=== PATIENT | male | born 1945 | race Caucasian/White ===

== ENCOUNTER 2018-07-26 17:04 | Emergency (ER) | payer OTHER ==
[~2018-07-26] VITALS: Ht 167.6 cm; Wt 65.8 kg
--- NOTE | ~2018-07-26 | EKG ---
[address] [address] ELECTROCARDIOGRAM REPORT Name: LINDSEY PLATT [id number] Admission: 07/26/18 Attend Phys: Discharge: 07/26/18 Date of : 43 Report #: [id number] THIS REPORT FOR: //name// [facility] ED Test Date: 2018-07-26 Test Time: 17:07:08 Pat Name: LINDSEY PLATT Department: Room: Gender: Clinical Data Specialist: ZAG : [id number] Requested By: Jose Pendleton Order Number: [id number] MD: Xiang Aquino Measurements Intervals [place] Rate: 90 P: 50 ME: 178 QRS: 15 QRSD: 98 T: 60 QT: 361 QTc: 442 Interpretive Statements Sinus rhythm Probable left ventricular hypertrophy Compared to ECG 05/16/2015 10:42:30 No significant changes Electronically Signed On 07-27-2018 8:19:31 CDT by Xiang Aquino [email or web address] <ELECTRONICALLY SIGNED> By: Xiang Aquino MD 07/27/18 0819 1707 06 Xiang Aquino MD /CESAR
[~2018-07-26 17:04] MED LIST: ADVAIR 250-501 EACH INH; ASPIR 8181 MG PO; ASPIRIN325 PO; BENADRYL25 MG PO; CIPROFLOXACIN500 M1 PO; FLAGYL500 MG PO; IBUPROFEN 200200 M1 PO; IBUPROFEN200 M2 PO; LIVALO1 MG PO; LIVALO2 MG PO; MUCINEX TA600 MG/TA1 PO; NORCO 5-325 TA1 EACH PO; NORFLEX100 MG PO; PROAIR HFA8.5 GM; SYMBICORT80 MCG/4.1 INH; TRILIPIX135 MG PO; TYLENOL325 MG PO
[2018-07-26 18:00] LABS: ABSOLUTE NEUTROPHILS 5.9 thou/uL (1.4-8.2); BASOPHILS 0.6 % (0.0-2.0); EOSINOPHILS 0.2 % (0.0-3.0); HEMATOCRIT 41.6 % (42.0-52.0); HEMOGLOBIN 14.3 gm/dL (14.0-18.0); LYMPHOCYTES 12.3 % (24.0-44.0); MCH 29.8 pg (26.0-34.0); MCHC 34.3 g/dL (28.0-37.0); MCV 86.9 fL (80.0-100.0); MONOCYTES 5.1 % (1.0-8.0); PLATELET COUNT 293 thou/uL (150-400); POLYS 81.8 % (36.0-66.0); RBC 4.79 mil/uL (4.50-6.00); RDW 14.1 % (10.5-14.5); WBC 7.2 thou/uL (4.0-11.0)
[2018-07-26 18:03] LABS: ANION GAP 4 mmol/L (7-16); BUN 16 mg/dL (7-18); CALCIUM 9.5 mg/dL (8.5-10.1); CHLORIDE 102 mmol/L (98-107); CO2 30 mmol/L (21-32); CREATININE 0.9 mg/dL (0.7-1.3); GLUCOSE 219 mg/dL (74-106); SODIUM 136 mmol/L (136-145)
[2018-07-26 18:12] LABS: TROPONIN-I <0.06 ng/mL (<0.06)
[2018-07-26] MEDS ORDERED: ROBAXIN 750 MG750 M1 PO (19:35)
[2018-07-26 20:45] VITALS: BP 154/82
== END 2018-07-26 20:47 | disposition home or self-care (01) ==
LOC: ER 17:04
PROVIDERS: Emergency Medicine
DX: R07.89 Other chest pain (principal); J45.909 Unspecified asthma, uncomplicated; K21.9 Gastro-esophageal reflux disease without esophagitis; E78.00 Pure hypercholesterolemia, unspecified

== ENCOUNTER 2019-01-06 10:18 | Emergency (ER) | payer OTHER ==
[~2019-01-06] VITALS: Ht 170.2 cm; Wt 65.8 kg
[~2019-01-06 10:18] MED LIST changes: +ROBAXIN 750 MG750 M1 PO
[2019-01-06 11:04] LABS: ABSOLUTE NEUTROPHILS 8.1 thou/uL (1.4-8.2); BASOPHILS 0.4 % (0.0-2.0); EOSINOPHILS 0.5 % (0.0-3.0); HEMATOCRIT 41.7 % (42.0-52.0); HEMOGLOBIN 14.2 gm/dL (14.0-18.0); LYMPHOCYTES 9.9 % (24.0-44.0); MCV 88.3 fL (80.0-100.0); MONOCYTES 7.7 % (1.0-8.0); PLATELET COUNT 283 thou/uL (150-400); POLYS 81.5 % (36.0-66.0); RBC 4.73 mil/uL (4.50-6.00); WBC 9.9 thou/uL (4.0-11.0)
[2019-01-06 11:12] LABS: ANION GAP 8 mmol/L (7-16); BUN 20 mg/dL (7-18); CALCIUM 9.2 mg/dL (8.5-10.1); CHLORIDE 100 mmol/L (98-107); CO2 31 mmol/L (21-32); GLUCOSE 261 mg/dL (74-106); SODIUM 139 mmol/L (136-145)
[2019-01-06 11:20] LABS: ALBUMIN 3.7 g/dL (3.4-5.0); LIPASE 113 U/L (73-393); SGOT 16 U/L (15-37); SGPT 29 U/L (30-65); TOTAL BILIRUBIN 0.7 mg/dL (<0.1-1.0); TOTAL PROTEIN 6.7 g/dL (6.4-8.2); TROPONIN-I <0.06 ng/mL (<0.06)
[2019-01-06] MEDS ORDERED: NORCO 5-325 TA1 EACH PO (11:30)
[2019-01-06] MEDS ORDERED: TORADOL 10 MG T10 MG PO (11:30)
[2019-01-06] MEDS ORDERED: FLOMAX0.4 MG PO (11:30)
[2019-01-06 13:43] VITALS: BP 118/62
== END 2019-01-06 13:46 | disposition home or self-care (01) ==
LOC: ER 10:18
PROVIDERS: Emergency Medicine
DX: N20.1 Calculus of ureter (principal); N13.30 Unspecified hydronephrosis; R11.10 Vomiting, unspecified; J45.909 Unspecified asthma, uncomplicated; E78.00 Pure hypercholesterolemia, unspecified; Z87.442 Personal history of urinary calculi

== ENCOUNTER → 2019-01-22 | Outpatient (CLI) | payer OTHER ==
[~2019-01-22] MED LIST changes: +FLOMAX0.4 MG PO; +TORADOL 10 MG T10 MG PO
== END ==
LOC: CAT 11:42
DX: Z13.6 Encounter for screening for cardiovascular disorders (principal); E78.00 Pure hypercholesterolemia, unspecified; I25.10 Atherosclerotic heart disease of native coronary artery without angina pectoris

== ENCOUNTER → 2019-02-06 | Outpatient (CLI) | payer OTHER | LOC: RAD 11:27 | DX: J98.4 Other disorders of lung (principal); M41.84 Other forms of scoliosis, thoracic region; Z88.8 Allergy status to other drugs, medicaments and biological substances ==

== ENCOUNTER → 2020-01-08 | Outpatient (CLI) | payer MEDICARE | LOC: SJCVC 09:55 | DX: I25.10 Atherosclerotic heart disease of native coronary artery without angina pectoris (principal); E78.00 Pure hypercholesterolemia, unspecified; I70.0 Atherosclerosis of aorta; I10 Essential (primary) hypertension; I65.23 Occlusion and stenosis of bilateral carotid arteries; J45.51 Severe persistent asthma with (acute) exacerbation; E11.9 Type 2 diabetes mellitus without complications; E78.1 Pure hyperglyceridemia; K21.9 Gastro-esophageal reflux disease without esophagitis; Z79.84 Long term (current) use of oral hypoglycemic drugs; Z79.899 Other long term (current) drug therapy; Z82.49 Family history of ischemic heart disease and other diseases of the circulatory system; Z87.891 Personal history of nicotine dependence ==

== ENCOUNTER → 2020-02-06 | Outpatient (CLI) | payer OTHER | LOC: SJCVCIMAG 11:54 → SJCVC 11:54 | DX: I08.8 Other rheumatic multiple valve diseases (principal); I25.10 Atherosclerotic heart disease of native coronary artery without angina pectoris; I10 Essential (primary) hypertension; E78.00 Pure hypercholesterolemia, unspecified; I70.0 Atherosclerosis of aorta; I65.23 Occlusion and stenosis of bilateral carotid arteries; J45.51 Severe persistent asthma with (acute) exacerbation; E11.9 Type 2 diabetes mellitus without complications; E78.1 Pure hyperglyceridemia; K21.9 Gastro-esophageal reflux disease without esophagitis; Z96.652 Presence of left artificial knee joint; Z79.899 Other long term (current) drug therapy; Z87.891 Personal history of nicotine dependence; Z82.49 Family history of ischemic heart disease and other diseases of the circulatory system ==

== ENCOUNTER → 2020-09-08 | Outpatient (CLI) | payer OTHER | LOC: SJCVC 09:53 | PROVIDERS: ATTEND Internal Medicine Cardiovascular Disease | DX: I35.1 Nonrheumatic aortic (valve) insufficiency (principal); I10 Essential (primary) hypertension; I70.0 Atherosclerosis of aorta; E78.5 Hyperlipidemia, unspecified; E78.1 Pure hyperglyceridemia; I65.23 Occlusion and stenosis of bilateral carotid arteries; G47.30 Sleep apnea, unspecified; Z82.49 Family history of ischemic heart disease and other diseases of the circulatory system ==

== ENCOUNTER → 2020-11-20 | Outpatient (CLI) | payer OTHER | LOC: SJCVC 15:22 | PROVIDERS: ATTEND Internal Medicine Cardiovascular Disease | DX: I35.1 Nonrheumatic aortic (valve) insufficiency (principal); I10 Essential (primary) hypertension; E78.5 Hyperlipidemia, unspecified; I70.0 Atherosclerosis of aorta; E78.1 Pure hyperglyceridemia; I65.23 Occlusion and stenosis of bilateral carotid arteries; G47.30 Sleep apnea, unspecified; J45.909 Unspecified asthma, uncomplicated; K21.9 Gastro-esophageal reflux disease without esophagitis; E78.00 Pure hypercholesterolemia, unspecified; Z87.442 Personal history of urinary calculi; Z87.891 Personal history of nicotine dependence; Z72.89 Other problems related to lifestyle; Z79.899 Other long term (current) drug therapy; Z82.49 Family history of ischemic heart disease and other diseases of the circulatory system; Z88.8 Allergy status to other drugs, medicaments and biological substances ==

== ENCOUNTER → 2020-12-14 | Outpatient (CLI) | payer OTHER | LOC: SJCVCIMAG 08:02 | PROVIDERS: ATTEND Internal Medicine Cardiovascular Disease | DX: I08.0 Rheumatic disorders of both mitral and aortic valves (principal); I65.23 Occlusion and stenosis of bilateral carotid arteries; I11.9 Hypertensive heart disease without heart failure; R94.31 Abnormal electrocardiogram [ECG] [EKG]; E78.5 Hyperlipidemia, unspecified; E11.9 Type 2 diabetes mellitus without complications; E78.1 Pure hyperglyceridemia; I25.10 Atherosclerotic heart disease of native coronary artery without angina pectoris; K21.9 Gastro-esophageal reflux disease without esophagitis; E78.00 Pure hypercholesterolemia, unspecified; Z98.890 Other specified postprocedural states; Z88.8 Allergy status to other drugs, medicaments and biological substances; Z79.899 Other long term (current) drug therapy; Z87.891 Personal history of nicotine dependence; Z82.49 Family history of ischemic heart disease and other diseases of the circulatory system ==

== ENCOUNTER → 2021-07-21 | Outpatient (CLI) | payer OTHER | LOC: SJCVC 10:14 | PROVIDERS: ATTEND Internal Medicine Cardiovascular Disease | DX: R94.31 Abnormal electrocardiogram [ECG] [EKG] (principal); I11.9 Hypertensive heart disease without heart failure; R93.1 Abnormal findings on diagnostic imaging of heart and coronary circulation; I65.23 Occlusion and stenosis of bilateral carotid arteries; E78.1 Pure hyperglyceridemia; I70.0 Atherosclerosis of aorta; E78.5 Hyperlipidemia, unspecified; I73.00 Raynaud's syndrome without gangrene; J44.9 Chronic obstructive pulmonary disease, unspecified; E11.9 Type 2 diabetes mellitus without complications; R06.00 Dyspnea, unspecified; R53.83 Other fatigue; Z82.49 Family history of ischemic heart disease and other diseases of the circulatory system; Z79.899 Other long term (current) drug therapy; Z87.891 Personal history of nicotine dependence ==

== ENCOUNTER → 2021-08-23 | Outpatient (CLI) | payer OTHER | LOC: SJCVCIMAG 07:12 | PROVIDERS: ATTEND Internal Medicine Cardiovascular Disease | DX: I35.1 Nonrheumatic aortic (valve) insufficiency (principal); R06.00 Dyspnea, unspecified; R93.1 Abnormal findings on diagnostic imaging of heart and coronary circulation; R53.83 Other fatigue ==